=== PATIENT | male | born 1940 | race Caucasian/White ===

== ENCOUNTER 2023-07-20 10:40 | Outpatient (CLI) | payer MEDICARE, BC ==
[2023-07-20 13:39] LABS: Anion Gap 19 mmol/L (10-20); BUN (Urea Nitrogen) 30 mg/dL (8.4-25.7); Calc. Creatinine Clearance 0 mL/min (70-130); Calcium 10.4 mg/dL (7.8-10.44); Carbon Dioxide 24 mmol/L (23-31); Chloride 104 mmol/L (98-107); Estimated GFR 53; Glucose 111 mg/dL (83-110); Potassium 4.6 mmol/L (3.5-5.1); Sodium 142 mmol/L (136-145)
== END 2023-07-20 10:41 | disposition home or self-care (01) ==
LOC: LABBT 10:40
PROVIDERS: ATTEND Neurological Surgery
DX: Z01.812 Encounter for preprocedural laboratory examination (principal); M54.12 Radiculopathy, cervical region
CPT/HCPCS: 80048

== ENCOUNTER 2023-07-20 11:00 | Inpatient (IN) | payer MEDICARE, BC ==
[2023-07-20 11:54] VITALS: BMI 28.5
[2023-07-22] MEDS ORDERED: Rocuronium Bromide 10 MG/ML (10ML VIAL) ONE ×2 (08:05→09:13)
[2023-07-22] MEDS ORDERED: Thrombin 5000 UNITS/5 ML VIAL ONE (08:05)
[2023-07-22] MEDS ORDERED: Lidocaine 1% PF 5 ML VIAL ONE ×2 (08:05→09:13)
[2023-07-22] MEDS ORDERED: fentaNYL PF 100 MCG/2 ML SYRINGE ONE (08:05)
[2023-07-22] MEDS ORDERED: PROPOFOL 20 ML ONE (08:05)
[2023-07-22] MEDS ORDERED: Vancomycin 1 GM/200 ML (FROZEN) BAG ONE (08:22)
[2023-07-22] MEDS ORDERED: Sodium Chloride 0.9% 100 ML ONE (08:58)
[2023-07-22] MEDS ORDERED: CEFAZOLIN 2 GM VIAL ONE (08:58)
[2023-07-22] MEDS ORDERED: PROPOFOL 200 MG/20 ML VIAL ONE (09:13)
[2023-07-22] MEDS ORDERED: Ondansetron PF 4 MG/2 ML Vial ONE ×2 (09:13→09:50)
[2023-07-22] MEDS ORDERED: NEOSTIGMINE 3 MG/3 ML SYR 3 MG/3 ML SYRINGE ONE ×2 (09:13→10:36)
[2023-07-22] MEDS ORDERED: Glycopyrrolate 0.2 MG/ML 5 ML SYRINGE ONE ×2 (09:13→09:47)
[2023-07-22] MEDS ORDERED: Dexamethasone 20 MG/5 ML VIAL ONE ×2 (09:13→09:50)
[2023-07-22] MEDS ORDERED: Tamsulosin HCl 0.4 MG CAP ONE (11:11)
== END 2023-07-22 12:37 | disposition home or self-care (01) | DRG 473 ==
LOC: SURG A 07-22 06:56
PROVIDERS: ADMIT Neurological Surgery; ATTEND Neurological Surgery
PROC: 0RG20A0 Fusion of 2 or more Cervical Vertebral Joints with Interbody Fusion Device, Anterior Approach, Anterior Column, Open Approach (ICD-10-PCS; principal; 2023-07-22)
PROC: 01N10ZZ Release Cervical Nerve, Open Approach (ICD-10-PCS; 2023-07-22)
PROC: 00NW0ZZ Release Cervical Spinal Cord, Open Approach (ICD-10-PCS; 2023-07-22)
PROC: 0RT30ZZ Resection of Cervical Vertebral Disc, Open Approach (ICD-10-PCS; 2023-07-22)
DX: M48.02 Spinal stenosis, cervical region (principal); M54.12 Radiculopathy, cervical region; E78.5 Hyperlipidemia, unspecified; E11.9 Type 2 diabetes mellitus without complications; I10 Essential (primary) hypertension; M19.90 Unspecified osteoarthritis, unspecified site; M10.9 Gout, unspecified
CPT/HCPCS: 80048; C1713; C1889; J1100; J2405; J2704; J3370-JW; J3490